=== PATIENT | male | born 1965 | race Caucasian/White ===

== ENCOUNTER → 2021-06-22 08:50 | Outpatient (CLI) | payer OTHER, SELFPAY ==
--- NOTE | 2021-06-22 | DI.ECHO.S_ITS ---
[facility]---------+ [facility] +---------+ : : [address] : : : : [id number] : : : : Phone: [phone]---------+ Echocardiogram Report + + :Name: IVETT HASTINGS Study Date: 06/22/2021 Height: 72 in : :[facility] ReadingLocation: Weight: 400 lb : : Gender: Male BSA: 2.9 m2 : :: 1965 Age: 55 yrs BP: 119/102 mmHg: :Reason For Study: Unspecified systolic ( congestive) heart : :failure, : :Ordering Physician: Kiki : :Berhane Performed By: Yo Newton : :Referring: KIKI LAST E : + + Interpretation Summary The study quality was technically difficult. The ejection fraction is estimated to be 40-45%. Diastolic function could not be accurately assessed due to atrial fibrillation. Right ventricular systolic function is borderline reduced. The left atrium is moderately dilated. There is mild to moderate aortic stenosis. There is mild aortic regurgitation. Pulmonary artery pressures cannot be estimated because of the lack of a measurable TR jet velocity. Compared to the prior study dated 01/01/2021, no significant change. Procedure: A two-dimensional transthoracic echocardiogram with color flow and Doppler was performed. The study quality was technically difficult. Images from the parasternal window were difficult to obtain and are suboptimal in quality. The apical views were difficult to obtain and are suboptimal in quality. Comparison is made with the echocardiogram of 01/01/2021. A contrast injection of Definity was performed to improve assessment of LV function. Overall very poor acoustic window. The patient was in atrial fibrillation with heart rates between 103 - 122 bpm during the exam. Left Ventricle: The left ventricle is borderline dilated. There is normal left ventricular wall thickness. The ejection fraction is estimated to be 40- 45%. Diastolic function could not be accurately assessed due to atrial fibrillation. Right Ventricle: The right ventricle is normal size. Right ventricular systolic function is borderline reduced. Atria: The left atrium is moderately dilated. Right atrium not well visualized secondary to technical limitations. Mitral Valve: The mitral valve is normal. There is trace mitral regurgitation. Aortic Valve: The aortic valve is not well visualized. The aortic valve is mildly calcified. The peak aortic velocity is 3 m/sec. The aortic valve mean gradient is 22 mmHg. There is mild to moderate aortic stenosis. There is mild aortic regurgitation. Tricuspid Valve: The tricuspid valve is not well visualized, but is grossly normal. There is a trace or physiologic amount of tricuspid regurgitation. Pulmonary artery pressures cannot be estimated because of the lack of a measurable TR jet velocity. Pulmonic Valve: The pulmonic valve is not well seen, but is grossly normal. Great Vessels: The aortic root is not well visualized but is probably normal size. Ascending aorta measuring 3.9 cm, previously measuring 4.3 cm. The aortic arch is normal in size. The IVC is of normal diameter and collapses greater than 50% with a sniff. This suggests a low right atrial pressure of 3 mm Hg. Pericardium/ Pleura There is no pericardial effusion. There is an anterior echo-free space consistent with a fat pad. There is no pleural effusion. MMode/2D Measurements & Calculations LVIDd: 5.8 cm LVOT diam: 2.3 cm LVIDs: 4.6 cm asc Aorta Diam: 3.9 cm FS: 20.4 % Ao Arch Diam (Prox Trans): 2.4 cm IVSd: 0.95 cm LVPWd: 1.1 cm LV tinsley. diameter/BSA (cm/m^2): 2.0 LV sys. diameter/BSA (cm/m^2): 1.6 LA A2 area: 34.0 cm2 TAPSE: 1.6 cm LA A4 area: 33.9 cm2 LA length (vol): 7.0 cm LA vol: 139.6 ml LA vol index: 48.8 ml/m2 Doppler Measurements & Calculations Ao V2 max: 314.2 cm/sec LVOT Max Mahin: 89.9 cm/sec Ao V2 mean: 226.8 cm/sec LV V1 max P.2 mmHg Ao max P.5 mmHg LV V1 VTI: 19.2 cm Ao mean P.2 mmHg SHAHANA(I,D): 1.3 cm2 Ao V2 VTI: 65.4 cm SHAHANA(V,D): 1.2 cm2 sev ratio: 0.29 SHAHANA indexed to BSA (cm^2/m^2): 0.44 MV E max mahin: 81.3 cm/sec PA V2 max: 66.4 cm/sec Med Peak E' Mahin: 7.2 cm/sec PA V2 mean: 51.1 cm/sec E/E' med: 11.3 PA mean P.1 mmHg Lat Peak E' Mahin: 12.7 cm/sec E/E' lat: 6.4 E/e' average: 8.8 MV dec time: 0.22 sec SV([facility]): 82.4 ml Reading Physician:11:49 AM
== END ==
PROVIDERS: PCP Physician Assistant; Referring Provider Internal Medicine Cardiovascular Disease; Visit Provider Internal Medicine Cardiovascular Disease
DX: I50.20 Unspecified systolic (congestive) heart failure (principal); I35.0 Nonrheumatic aortic (valve) stenosis; I35.1 Nonrheumatic aortic (valve) insufficiency; I48.91 Unspecified atrial fibrillation; I34.0 Nonrheumatic mitral (valve) insufficiency; I07.1 Rheumatic tricuspid insufficiency
CPT/HCPCS: 93306; Q9957